=== PATIENT | male | born 1965 | race Caucasian/White ===

== ENCOUNTER 2018-10-13 21:13 | Emergency (ER) | payer OTHER ==
[~2018-10-13] VITALS: Ht 170.2 cm; Wt 79.4 kg
--- NOTE | 2018-10-13 22:05 | NUR ---
Dr. Green at bedside for MSE.
[2018-10-13] MEDS ORDERED: OXYCODONE/APAP 5-325 MG TABLET PO ONE ×2 (22:15→23:15)
[2018-10-13] MEDS ORDERED: LORAZEPAM 0.5 MG TABLET PO ONE ×2 (22:15→23:15)
[2018-10-13] MEDS ORDERED: CYCLOBENZAPRINE HCL 10 MG TABLET PO ONE (22:15)
[2018-10-13] MEDS ORDERED: LORAZEPAM 1 MG TABLET ONE (22:19)
[2018-10-13] MEDS ORDERED: CYCLOBENZAPRINE HCL 10 MG TABLET ONE (22:20)
[2018-10-13] MEDS ORDERED: OXYCODONE/APAP 5-325 MG TABLET ONE ×2 (22:20→23:17)
[2018-10-13] MEDS ORDERED: LORAZEPAM 0.5 MG TABLET ONE (23:18)
--- NOTE | 2018-10-14 00:23 | NUR ---
Patient discharged to home in stable conditon. Written and verbal after care instructions given. Patient verbalizes understanding of instructions.
== END 2018-10-14 00:24 | disposition home or self-care (01) ==
LOC: ER 21:16
DX: M62.838 Other muscle spasm (principal); M54.2 Cervicalgia
CPT/HCPCS: A4663

== ENCOUNTER 2018-10-15 13:27 | Emergency (ER) | payer OTHER ==
[~2018-10-15] VITALS: Ht 170.2 cm; Wt 79.4 kg
[2018-10-15] MEDS ORDERED: DIAZEPAM 2 MG TABLET PO ONE (13:45)
[2018-10-15] MEDS ORDERED: MORPHINE SULFATE 4 MG/1 ML DISP.SYRIN IM ONE (13:45)
[2018-10-15] MEDS ORDERED: KETOROLAC TROMETHAMINE 30 MG INJ IM ONE (13:45)
[2018-10-15] MEDS ORDERED: DIAZEPAM 2 MG TABLET ONE (13:49)
[2018-10-15] MEDS ORDERED: KETOROLAC TROMETHAMINE 30 MG INJ ONE (13:49)
[2018-10-15] MEDS ORDERED: MORPHINE SULFATE 4 MG/1 ML DISP.SYRIN ONE (13:49)
[2018-10-15] MEDS ORDERED: MORPHINE SULFATE 2 MG/1 ML DISP.SYRIN ONE (13:50)
--- NOTE | 2018-10-15 14:34 | NUR ---
Patient discharged to home in stable conditon. Written and verbal after care instructions given. Patient verbalizes understanding of instructions.pt walks in steady gait. pt stated that will use ub[employer] to go home. pt is not driving.
[2018-10-15 14:36] VITALS: BP 141/93
== END 2018-10-15 14:38 | disposition home or self-care (01) ==
LOC: ER 13:27
DX: M43.6 Torticollis (principal); M62.838 Other muscle spasm; M54.2 Cervicalgia
CPT/HCPCS: 96372 ×2; 99283; J1885; J2270 ×2; A4663